=== PATIENT | female | born 2000 | race Caucasian/White ===

== ENCOUNTER → 2024-02-20 | Day surgery (SDC) | payer BC ==
[~2024-02-20] MED LIST: ACETAMINOPHEN 1000 MG/100 ML 100 ML IV ONE; BIRTH CONTROL PO; DEXAMETHASONE SOD PHOS INJ 4 MG/ML SDV ONE; FAMOTIDINE 20 MG/2 ML VIAL IV ONE; FENTANYL CITRATE/PF 100MCG/2 ML INJ ONE; LIDOCAINE HCL 2% LOCAL INJ 5 ML SDV VIAL INJ ONE; MIDAZOLAM HCL 2 MG/2 ML VIAL ONE; ONDANSETRON HCL INJ 2MG/ML 2ML 2 MG/ML VIAL ONE; PROPOFOL IV EMULSION 10 MG/ML 20 ML VIAL ONE
[2024-02-20] MEDS: ONDANSETRON HCL INJ 2MG/ML 2ML 2 MG/ML VIAL ONE (08:36)
[2024-02-20 08:45] VITALS: TEMP 97.9
[2024-02-20 09:20] VITALS: BP 112/75; PULSE 87; RESP 17; O2SAT 100
[2024-02-20] MEDS: LACTATED RINGER'S 1,000 ML ONE (14:27)
== END | disposition home or self-care (01) ==
LOC: OR 05:50
PROVIDERS: ATTEND Podiatrist Foot Surgery
DX: M21.622 Bunionette of left foot (principal); K21.9 Gastro-esophageal reflux disease without esophagitis; K44.9 Diaphragmatic hernia without obstruction or gangrene; F41.9 Anxiety disorder, unspecified
CPT/HCPCS: 28110; 36415; 84702; J0131; J1100; J2003; J2250; J2405; J2704; J3010; J7121